=== PATIENT | male | born 1990 | race American Indian/Alaskan Native ===

== ENCOUNTER 2018-08-02 13:17 | Emergency (ER) | payer MEDICAID ==
[~2018-08-02] VITALS: Ht 177.8 cm; Wt 73.0 kg
[2018-08-02 13:19] VITALS: BP 155/99
[2018-08-02] MEDS ORDERED: ETOMIDATE 2MG/ML 10ML VIAL IV ONE (13:20)
[2018-08-02] MEDS ORDERED: SUCCINYLCHOLINE CHLORIDE 200MG/10ML IV ONE ×2 (13:20→13:30)
[2018-08-02] MEDS ORDERED: VECURONIUM BROMIDE 10 MG/VIAL IV ONE ×2 (13:20→13:45)
[2018-08-02] MEDS ORDERED: SODIUM CHLORIDE 0.9% 10ML VIAL ONE (13:20)
[2018-08-02] MEDS ORDERED: SODIUM CHLORIDE 0.9% 1,000 ML IV ONE ×2 (13:26)
[2018-08-02] MEDS ORDERED: MIDAZOLAM HCL 50 MG in DEXTROSE 5% WATER 40 ML IV ONE (13:30)
[2018-08-02] MEDS ORDERED: PROPOFOL 10MG/ML 100ML 100 ML IV ONE (13:30)
== END 2018-08-02 13:47 | disposition short-term general hospital (02) ==
LOC: ER 13:17
DX: S41.002A Unspecified open wound of left shoulder, initial encounter (principal); S11.80XA Unspecified open wound of other specified part of neck, initial encounter; J96.90 Respiratory failure, unspecified, unspecified whether with hypoxia or hypercapnia; W33.01XA Accidental discharge of shotgun, initial encounter; Y93.89 Activity, other specified; Y92.89 Other specified places as the place of occurrence of the external cause; Y99.8 Other external cause status
CPT/HCPCS: 31500; 71045; 96374; 96375; 99291; A4216; J0330; J2250; J2704; J3490; J7030; J7060

== ENCOUNTER 2021-01-28 04:35 | Emergency (ER) | payer MEDICAID ==
[~2021-01-28] VITALS: Ht 185.4 cm; Wt 91.0 kg
[2021-01-28 06:06] LABS: BASOPHILS % 0.3 % (0.0-2.0); HEMATOCRIT. 40.9 % (42.0-52.0); HEMOGLOBIN. 13.1 g/dL (14.0-18.0); LYMPHOCYTES % 15.6 % (20.0-50.0); MEAN CORPUSCULAR HEMOGLOBIN 28.7 pg (28.0-32.0); MEAN CORPUSCULAR VOLUME 89.9 fL (80.0-94.0); MEAN PLATELET VOLUME 9.2 fl (7.4-10.4); MONOCYTES % 7.7 % (2.0-8.0); NEUTROPHILS % 74.4 % (40.0-76.0); PLATELET 270 x1000/uL (130-400); RED BLOOD CELL COUNT 4.56 mill/uL (4.7-6.1); RED CELL DISTRIBUTION WIDTH 13.3 % (11.6-14.6)
[2021-01-28 06:12] LABS: CHLORIDE 104 mEq/L (98-107)
[2021-01-28 08:51] LABS: *AMPHETAMINES SCREEN URINE NEGATIVE (NEGATIVE); *BARBITURATES SCREEN URINE NEGATIVE (NEGATIVE); *BENZODIAZEPINES SCREEN URINE NEGATIVE (NEGATIVE); *COCAINE SCREEN URINE NEGATIVE (NEGATIVE); METHADONE URINE SCREEN NEGATIVE (NEGATIVE); OPIATES URINE SCREEN NEGATIVE (NEGATIVE)
[2021-01-28 08:52] LABS: CANNABINOID URINE SCREEN PRESUMTIVE POSITIVE (NEGATIVE); PHENCYCLIDINE URINE SCREEN NEGATIVE (NEGATIVE)
[2021-01-28 10:23] VITALS: BP 122/68
== END 2021-01-28 10:25 | disposition home or self-care (01) ==
LOC: ER 05:09
DX: M54.5 Low back pain (principal); I49.9 Cardiac arrhythmia, unspecified; Z87.442 Personal history of urinary calculi
CPT/HCPCS: 36415; 71045; 80053; 80305; 83880; 84484; 85025; 93005; 99285